=== PATIENT | male | born 1990 | race Caucasian/White ===

== ENCOUNTER 2019-02-04 17:49 | Emergency (ER) | payer OTHER, SELFPAY ==
[2019-02-04 17:55] VITALS: BP 154/88; PULSE 101; RESP 17; TEMP 36.8; O2SAT 100; BMI 26.6
--- NOTE | 2019-02-04 18:02 | DI.RAD.S_ITS ---
PROCEDURE: XR CHEST 1V INDICATIONS: chest pain TECHNIQUE: One view of the chest was acquired. COMPARISON: None. FINDINGS: Surgical changes and devices: None. Lungs and pleura: Lungs are clear. No pleural effusions or pneumothorax. Mediastinum: Mediastinal contours appear normal. Heart size is normal. Bones and chest wall: No suspicious bony lesions. Overlying soft tissues appear unremarkable. IMPRESSION: No evidence acute pulmonary process. Dictated by: Buddy Hummel M.D. on 02/04/2019 at 19:13 Approved by: Buddy Hummel M.D. on 02/04/2019 at 19:13
[2019-02-04 18:24] LABS: Add Manual Diff / Slide Review NO; Basophils Absolute Auto 100 /uL (0-100); Basophils Percent Auto 0.5 % (0-2); Eosinophils Absolute Auto 0 /uL (0-450); Eosinophils Percent Auto 0.2 % (2-4); Hemoglobin 16.9 g/dL (13.5-17.5); Lymphocytes Absolute Auto 1600 /uL (1100-4500); Mean Corpuscular HGB Conc 35.3 % (30-36); Mean Corpuscular Hemoglobin 31.5 PG (26-34); Mean Corpuscular Volume 89.4 fL (80-100); Monocytes Absolute Auto 600 /uL (0-900); Monocytes Percent Auto 5.4 % (3-14); Neutrophils Absolute Auto 8900 /uL (1500-7000); Neutrophils Percent Auto 79.9 % (50-75); Platelet Count 212 X10^3/uL (150-400); Red Blood Cell Count 5.37 X10^6/uL (4.5-5.9); White Blood Cell Count 11.1 X10^3/uL (4.5-11.0)
[2019-02-04 18:31] LABS: Prothrombin Time 11.9 SECONDS (10.1-12.7)
[2019-02-04 18:33] LABS: PTT Partial Thromboplastin Tim 28 SECONDS (26.4-36.2)
[2019-02-04 18:36] LABS: Alanine Aminotransferase 46 IU/L (21-72); Albumin 4.9 g/dL (3.5-5.0); Albumin Globulin Ratio 1.5 (1.0-2.8); Alkaline Phosphatase 69 U/L (38-126); Aspartate Aminotransferase 74 IU/L (17-59); Blood Urea Nitrogen 12 mg/dL (9-20); Calcium 9.4 mg/dL (8.4-10.2); Carbon Dioxide 31 mmol/L (22-32); Chloride 99 mmol/L (98-107); Creatine Kinase 1372 U/L (55-170); Estimated Glomerular Filt Rate > 60.0 mL/min (>60); Globulin 3.3 g/dL (1.7-4.1); Glucose 121 mg/dL (70-100); HEMOLYSIS 16 (0-50); Lipase 32 U/L (23-300); Potassium 4.1 mmol/L (3.4-5.1); Sodium 141 mmol/L (137-145); Total Protein 8.2 g/dL (6.3-8.2)
[2019-02-04 18:47] LABS: Troponin I < 0.012 ng/mL (0.01-0.034)
[2019-02-04 18:51] LABS: CKMB % Relative Index 0.4 % (1.5-5.0); Creatine Kinase MB 5.59 ng/mL (<2.37)
--- NOTE | 2019-02-04 19:14 | ED.CHESTPAIN ---
HPI - Chest Pain General Chief Complaint: Chest Pain Stated Complaint: Sob and tightness in chest all day Time Seen by Provider: 02/04/19 18:13 Source: patient Mode of arrival: Ambulatory Limitations: no limitations History of Present Illness HPI narrative: Otherwise healthy 28-year-old male with a history of anxiety here for evaluation of heart palpitations and chest pain. Patient states that earlier this evening he had a panic attack. Does not know exactly what started the symptoms. He did have chest pain and chest fullness some problems breathing and palpitations. He did report that at the time of my evaluation his symptoms had resolved. Did not try anything for symptoms prior to arrival Related Data Allergies Allergy/AdvReac Type Severity Reaction Status Date / Time No Known Drug Allergies Allergy Verified 02/04/19 18:01 Review of Systems Constitutional Constitutional: Denies fever(s) and Denies headache(s) ENT Ears, Nose, Mouth, and Throat: Denies headache(s) Cardiovascular Cardiovascular: Reports chest pain, Reports palpitations and Reports dyspnea Respiratory Respiratory: Denies cough and Reports dyspnea Gastrointestinal Gastrointestinal: Denies abdominal pain, Denies nausea and Denies vomiting Integumentary/Breasts Skin/Breast: Denies rash Neurologic Neurologic: Denies abnormal speech and Denies headache(s) Endocrine Endocrine: Reports palpitations Hematologic/Lymphatic Hematologic/Lymphatic: Denies easy bleeding and Denies easy bruising [facility] Medical History (Updated 02/04/19 @ 22:52 by Alvin Estevez DO) Anxiety (Acute) Social History Smoking Status: Current some day smoker Social History Smoking Status: Current some day smoker Exam Initial Vital Signs Initial Vital Signs: Vital Signs Temperature 98.3 F 02/04/19 17:55 Pulse Rate 101 H 02/04/19 17:55 Respiratory Rate 17 02/04/19 17:55 Blood Pressure 154/88 H 02/04/19 17:55 Pulse Oximetry 100 02/04/19 17:55 Const General: cooperative, healthy appearing, comfortable, well developed and well groomed Orientation: alert and oriented x3 Resp Effort & Inspection: normal respiratory effort Auscultation: clear to auscultation bilaterally Cardio Rate: regular rate Rhythm: regular rhythm Pulses: radial pulses present GI Inspection: non-distended Palpation: soft, No firm and No tender Skin Lesions: no lesions Rashes: no rashes Neuro General: alert, awake and oriented x3 Cognition: normal cognition Speech: speech normal Gait: normal gait Extrem General: normal to inspection and capillary refill normal Psych Appearance: grossly normal and well kempt Scores HEART Score Heart Score history: Slightly Suspicious Heart Score EKG: Normal Heart Score Age: < 45 years old Heart Score risk factors: No known risk factors Heart Score troponin: < or = to normal limit Heart Score Total: 0 Course Orders Ordered: ED Orders 02/04/19 18:02 XR chest 1V Stat EKG-12 Lead Stat 02/04/19 18:20 Complete Blood Count AUTO DIFF Stat Comprehensive Metabolic Panel Stat Lipase Stat Partial Thromboplastin Time Stat Prothrombin Time INR Stat Troponin & CK Cardiac Panel Stat Vital Signs Vital signs: Vital Signs - 8 hr 02/04/19 17:55 Temperature 98.3 F Pulse Rate 101 H Respiratory Rate 17 Blood Pressure 154/88 H Pulse Oximetry 100 MDM - Chest Pain Lab Data Attestation: I reviewed the patient's lab results. Result diagrams: 02/04/19 18:20 02/04/19 18:20 Labs: Lab Results 02/04/19 02/04/19 02/04/19 Range/Units 18:20 18:20 18:20 WBC 11.1 H (4.5-11.0) X10^3/uL RBC 5.37 (4.5-5.9) X10^6/uL Hgb 16.9 (13.5-17.5) g/dL Hct 48.0 (41-53) % MCV 89.4 (80-100) fL MCH 31.5 (26-34) PG MCHC 35.3 (30-36) % RDW 12.0 (11.6-14.8) % Plt Count 212 (150-400) X10^3/uL Neut % (Auto) 79.9 H (50-75) % Lymph % (Auto) 14.0 L (25-40) % [place] % (Auto) 5.4 (3-14) % Eos % (Auto) 0.2 L (2-4) % Baso % (Auto) 0.5 (0-2) % Neut # (Auto) 8900 H (1341-8795) /uL Lymph # (Auto) 1600 (5379-4235) /uL [place] # (Auto) 600 (0-900) /uL Eos # (Auto) 0 (0-450) /uL Baso # (Auto) 100 (0-100) /uL PT 11.9 (10.1-12.7) SECONDS INR 1.0 (0.9-1.3) APTT 28 (26.4-36.2) SECONDS Sodium 141 (137-145) mmol/L Potassium 4.1 (3.4-5.1) mmol/L Chloride 99 (98-107) mmol/L Carbon Dioxide 31 (22-32) mmol/L BUN 12 (9-20) mg/dL Creatinine 1.20 (0.66-1.25) mg/dL Estimated GFR > 60.0 (>60) mL/min BUN/Creatinine Ratio 10.0 (6-22) Glucose 121 H (70-100) mg/dL Calcium 9.4 (8.4-10.2) mg/dL Total Bilirubin 1.0 (0.2-1.3) mg/dL AST 74 H (17-59) IU/L ALT 46 (21-72) IU/L Alkaline Phosphatase 69 (38-126) U/L Total Creatine Kinase 1372 H (55-170) U/L CK-MB (CK-2) 5.59 H (<2.37) ng/mL CK-MB (CK-2) Rel Index 0.4 L (1.5-5.0) % Troponin I < 0.012 (0.01-0.034) ng/mL Total Protein 8.2 (6.3-8.2) g/dL Albumin 4.9 (3.5-5.0) g/dL Globulin 3.3 (1.7-4.1) g/dL Albumin/Globulin Ratio 1.5 (1.0-2.8) Lipase 32 (23-300) U/L Imaging Data Chest x-ray: Radiologist's impression: [address] [address] XRay Report Signed Patient: Parveen Moreau JMR#: [id number] : 1990Acct:[id number] Age/Sex: MDate of Service: 02/04/19 Loc: ED Accession Number: [id number] Procedure: XR chest 1V Ordering Provider: Colin Yeager D.O. PROCEDURE: XR CHEST 1V INDICATIONS: chest pain TECHNIQUE: One view of the chest was acquired. COMPARISON: None. FINDINGS: Surgical changes and devices: None. Lungs and pleura: Lungs are clear. No pleural effusions or pneumothorax. Mediastinum: Mediastinal contours appear normal. Heart size is normal. Bones and chest wall: No suspicious bony lesions. Overlying soft tissues appear unremarkable. IMPRESSION: No evidence acute pulmonary process. Dictated by: Buddy Hummel M.D. on 02/04/2019 at 19:13 Approved by: Buddy Hummel M.D. on 02/04/2019 at 19:13 ECG Data Attestation: I personally reviewed and interpreted this ECG as follows: Prior ECG tracings: not available for review Interpretation: Sinus rhythm Ventricular rate 89 Normal axis Normal QRS Normal QTC No ST T wave changes MDM Narrative Medical decision making narrative: Heart score 0. Patient asymptomatic time of my exam. Labs EKG chest x-ray is unremarkable. He did state that this was a panic attack. Feel this is low risk for ACS. Will hold on further workup for now. Patient has anxiety medications at home. They are given return precautions and follow-up instructions. Expressed understanding and agreement plan. Discharge Plan Departure Patient Disposition: Home Clinical Impression: Heart palpitations Discharge Date/Time: 02/04/19 19:28 Instructions: DI for Arrhythmias, DI for Palpitations Activity Restrictions/Additional Instructions: Contact your primary care provider for a follow up. Return to the ER for any new or worsening symptoms.
== END 2019-02-04 19:28 | disposition home or self-care (01) ==
PROVIDERS: Emergency Medicine; Emergency Provider Emergency Medicine
DX: R00.2 Palpitations (principal)
CPT/HCPCS: 71045; 80053; 82550; 82553; 83690; 84484; 85025; 85610; 85730; 93005; 93010; 99282; 99285